=== PATIENT | female | born 1990 | race Caucasian/White ===

== ENCOUNTER 2021-08-22 13:52 | Emergency (ER) | payer MEDICAID ==
[~2021-08-22] VITALS: Ht 162.6 cm; Wt 48.5 kg
[2021-08-22 14:10] VITALS: BP_SYST 102
[2021-08-22 14:46] LABS: BILIRUBIN,URINE NEGATIVE (NEGATIVE); BLOOD, URINE NEGATIVE (NEGATIVE); CLARITY/URINE CLEAR (CLEAR); COLOR,URINE YELLOW (YELLOW); GLUCOSE,URINE NEGATIVE (NEGATIVE); KETONES,URINE NEGATIVE (NEGATIVE); LEUKOCYTE ESTERASE ,URINE 1+ (NEGATIVE); NITRITE, URINE NEGATIVE (NEGATIVE); PROTEIN URINE NEGATIVE (NEGATIVE); UROBILINOGEN,URINE 0.2 (0.2-1.0)
[2021-08-22 15:06] LABS: BACTERIA,URINE RARE /HPF (None Seen); RBC,URINE 0-3 /HPF (0-3)
[2021-08-22 17:29] VITALS: BP_SYST 107
[2021-08-24 00:06] LABS: CHLAMYDIA TRACHOMATIS NAA Negative (Negative); NEISSERIA GONORRHOEAE NAA Negative (Negative)
== END 2021-08-22 17:30 | disposition home or self-care (01) ==
LOC: SED 13:52
DX: N76.0 Acute vaginitis (principal); M54.50 Low back pain, unspecified
CPT/HCPCS: 72100-TC; 81000; 81025; 87086; 87491; 87591; 99284